=== PATIENT | male | born 1955 | race Caucasian/White ===

== ENCOUNTER 2019-02-22 09:00 | Outpatient (CLI) | payer BC ==
--- NOTE | 2019-02-22 12:45 | XRAY Report ---
Reason: KNEE JOINT PAIN,LEFT Procedure Date: 02/22/2019 Accession Number: [id number] / [id number] Procedure: WCP - Knee 3 View LT CPT Code: FULL RESULT: EXAM: LEFT KNEE RADIOGRAPHY EXAM DATE: 02/22/2019 09:09 AM. CLINICAL HISTORY: Knee joint pain, left. COMPARISON: None. TECHNIQUE: 3 views. FINDINGS: Bones: Normal. No fractures or bone lesions. Joints: There is at least moderate joint space narrowing of the medial weightbearing compartment. Calcifications are seen projecting over the joint space of the lateral patella facet on the sunrise view. These are possibly identified as residing within the quadriceps tendon proximal to the insertion of the patella. No significant joint effusion. No subluxation. Soft Tissues: Vascular calcifications are noted. Suspected loose body is seen on the lateral view. IMPRESSION: Degenerative changes as described. RADIA
== END 2019-02-22 09:01 | disposition home or self-care (01) ==
LOC: DI.WCP 09:00
PROVIDERS: ATTEND Family Medicine
DX: M17.12 Unilateral primary osteoarthritis, left knee (principal)

== ENCOUNTER 2020-10-03 08:00 | Outpatient (CLI) | payer MEDICARE, BC ==
[2020-10-03 14:40] LABS: RHEUMATOID FACTOR NEGATIVE (Negative)
[2020-10-05 10:26] LABS: ANA SCREEN NEGATIVE (NEGATIVE)
== END 2020-10-03 23:59 | disposition home or self-care (01) ==
LOC: LAB.WCP 08:00
PROVIDERS: ATTEND Family Medicine
DX: M25.50 Pain in unspecified joint (principal)
CPT/HCPCS: 36415; 85651; 86038; 86140; 86430

== ENCOUNTER 2020-10-03 10:10 | Outpatient (CLI) | payer MEDICARE, BC ==
--- NOTE | 2020-10-03 11:26 | XRAY Report ---
PROCEDURE: Hand 3 View BILAT INDICATIONS: HAND SWELLING, PX AND NUMBNESS TECHNIQUE: 3 views of each hand(s) acquired. COMPARISON: None FINDINGS: Bones: No fractures or dislocations. No suspicious bony lesions. Mild periarticular osteophyte for mation at the proximal and distal interphalangeal joints of the digits, as well as the metacarpophala ngeal joints, worst at the third metacarpophalangeal joints bilaterally. No evidence of erosive arthr opathy. Soft tissues: No suspicious soft tissue calcifications. IMPRESSION: Multifocal osteoarthritis. No evidence of erosive arthropathy. Reviewed by: Judi Duran MD on 10/03/2020 11:25 AM PST Approved by: Judi Duran MD on 10/03/2020 11:25 AM [facility] Station ID: [id number]
--- NOTE | 2020-10-03 11:27 | XRAY Report ---
PROCEDURE: Shoulder 3 View RT INDICATIONS: R SHOULDER JOINT PX TECHNIQUE: 3 views of the shoulder were acquired. COMPARISON: None. FINDINGS: Bones: No fractures or dislocations. No suspicious bony lesions. Visualized ribs appear intact. M oderate periarticular osteophyte formation at the acromioclavicular joint. Mild periarticular osteoph yte formation at the glenohumeral joint. Soft tissues: No suspicious soft tissue calcifications. Small radiodensity projects over the inferi or glenohumeral joint. IMPRESSION: 1. Osteoarthritis. 2. Possible small intra-articular loose body. This could be further assessed with MRI arthrography, i f clinically indicated. 3. No acute fracture. No osseous lesion. If symptoms and/or clinical suspicion for pathology continue , further assessment with repeat plain films, or advanced imaging (e.g., CT, MRI, or bone scan) is re commended for further assessment. Reviewed by: Judi Duran MD on 10/03/2020 11:26 AM PST Approved by: Judi Duran MD on 10/03/2020 11:26 AM PST Station ID: [id number]
--- NOTE | 2020-10-03 17:57 | XRAY Report ---
PROCEDURE: Cervical Spine w/Flex/Ext INDICATIONS: CERVICAL DISC DISORDER WITH RADICULOPATHY TECHNIQUE: 7 views of the cervical spine were acquired with flexion and extension views as well as o blique views. COMPARISON: None. FINDINGS: Bones: No fractures or dislocations to the top of T1 level. No suspicious bony lesions. There is n ormal range of motion between flexion and extension, with preserved normal bony alignment. Moderate t o severe C3-C4 C4-C5, C5-C6 and C6-7 C7 degenerative disc disease. Moderate C7-T1 degenerative disc d isease. Mild C2-C3 degenerative disc disease. Mild bilateral C7-T1 facet arthropathy. Moderate bilate ral C3-C4, C4-C5, C5-C6 and C6-C7 uncovertebral joint hypertrophy. Severe right C4-C5, C5-C6 and C6-7 C7 neural foraminal narrowing. Severe left C3 3-C4, C4-C5, C5-C6 and C6-7 C7 neural foraminal narrow ing. Moderate right C3-C4 neural foraminal narrowing. There is limited range of motion with flexion a nd extended positions. Soft tissues: Prevertebral soft tissues are normal in thickness. IMPRESSION: 1. Multilevel degenerative disc disease. 2. Multilevel uncovertebral arthropathy. 3. Multilevel neural foraminal narrowing as described above. 4. Limited range of motion the flexed and extended positions without abnormal vertebral body motion. 5. No fracture. No acute osseous lesion. If there is continued clinical concern for pathology, then M RI should be considered for further evaluation. Reviewed by: Ayleen Russo MD, PhD on 10/03/2020 4:56 PM [place] Approved by: Ayleen Russo MD, PhD on 10/03/2020 4:56 PM [place] Station ID: [id number]
== END 2020-10-03 10:11 | disposition home or self-care (01) ==
LOC: DI.N 10:10
PROVIDERS: ATTEND Family Medicine
DX: M47.812 Spondylosis without myelopathy or radiculopathy, cervical region (principal); M50.31 Other cervical disc degeneration, high cervical region; M19.011 Primary osteoarthritis, right shoulder; M19.042 Primary osteoarthritis, left hand; M19.041 Primary osteoarthritis, right hand; M25.50 Pain in unspecified joint
CPT/HCPCS: 36415; 85651; 86038; 86140; 86430

== ENCOUNTER 2020-10-26 08:00 | Outpatient (CLI) | payer MEDICARE, BC | END 2020-10-26 23:59 | disposition home or self-care (01) | LOC: LAB.WCP 08:00 | PROVIDERS: ATTEND Family Medicine | DX: R29.898 Other symptoms and signs involving the musculoskeletal system (principal); M25.511 Pain in right shoulder; M25.50 Pain in unspecified joint | CPT/HCPCS: 36415; 85651; 86140 ==